=== PATIENT | female | born 1955 | race Caucasian/White ===

== ENCOUNTER 2018-06-20 12:07 | Emergency (ER) | payer BC, OTHER ==
[2018-06-20 12:20] VITALS: BP 154/87
[2018-06-20] MEDS ORDERED: Lidocaine 1%* 5 ML VIAL INJ ONE (12:41)
--- NOTE | 2018-06-20 12:44 | ED ---
Skin Complaint - HPI Summary HPI Summary: 62 year old female presents with left ring finger swelling for a week. She states she had a mohs surgery on her face a couple weeks ago. She states she developed some burning pain in the area prior to the lesion. Couple days later she developed a blister. She states the blister has been getting worse. States she has some redness presents around the area. He saw her primary and told her to start taking doxycycline if it got worse. Her primary cultured the area and did not anything back. Started doxycycline yesterday and has taken 2 doses. She states swelling has gotten worse. She denies any drainage from the area. - History of Current Complaint Chief Complaint: UCUpperExtremity Time Seen by Provider: 06/20/18 12:36 Stated Complaint: RED SWOLLEN FINGER Pain Intensity: 8 - Allergy/Home Medications Allergies/Adverse Reactions: Allergies Allergy/AdvReac Type Severity Reaction Status Date / Time No Known Allergies Allergy Verified 06/20/18 12:46 Home Medications: Home Medications DOXYcycline CAP(*) [DOXYcycline 100MG CAP(*)] 100 mg PO BID 06/20/18 [History Confirmed 06/20/18] diPHENhydraMINE PO* [Benadryl PO 25 MG TAB*] 25 mg PO Q6H PRN 06/20/18 [History Confirmed 06/20/18] PMH/Surg Hx/FS Hx/Imm Hx Endocrine/Hematology History: Denies: Hx Anticoagulant Therapy Respiratory History: Denies: Hx Asthma Infectious Disease History: No Infectious Disease History: Denies: Traveled Outside the [place] in Last 30 Days - Social History Alcohol Use: Occasionally Substance Use Type: Reports: None Smoking Status (MU): Never Smoked Tobacco Review of Systems Negative: Fever Negative: Chest Pain Negative: Shortness Of Breath Positive: Other - lesion left ring finger All Other Systems Reviewed And Are Negative: Yes Physical Exam Triage Information Reviewed: Yes Vital Signs On Initial Exam: Initial Vitals Temp Pulse Resp BP Pulse Ox 98.6 F 70 17 154/87 100 06/20/18 12:14 06/20/18 12:14 06/20/18 12:14 06/20/18 12:14 06/20/18 12:14 Vital Signs Reviewed: Yes Appearance: Positive: Well-Appearing Skin: Positive: Warm, Dry, Other - eythema around 3cm blister like swelling on left ring finger palmar aspect of distal phalanx, small blisters adjacent to the area Head/Face: Positive: Normal Head/Face Inspection Eyes: Positive: Normal, Conjunctiva Clear ENT: Positive: Pharynx normal Respiratory/Lung Sounds: Positive: Clear to Auscultation, Breath Sounds Present Cardiovascular: Positive: Normal, RRR Musculoskeletal: Positive: Strength/ROM Intact - left ring finger, Other - good pulses, capillary refill<2 secs Neurological: Positive: Normal Psychiatric: Positive: Normal Diagnostics - Vital Signs Vital Signs Temp Pulse Resp BP Pulse Ox 06/20/18 12:14 98.6 F 70 17 154/87 100 - Laboratory Lab Statement: Any lab studies that have been ordered have been reviewed, and results considered in the medical decision making process. Course/Dx - Course Course Of Treatment: 62 year old female presents with left ring finger swelling for a week. She states she had a mohs surgery on her face a couple weeks ago. She states she developed some burning pain in the area prior to the lesion. Couple days later she developed a blister. She states the blister has been getting worse. States she has some redness presents around the area. He saw her primary and told her to start taking doxycycline if it got worse. Her primary cultured the area and did not anything back. Started doxycycline yesterday and has taken 2 doses. She states swelling has gotten worse. She denies any drainage from the area. On exam has blisterlike lesion with surrounding erythema on left ring finger. Minimal erythema around the blister. Multiple blister type lesions adjacent to the larger area of swelling. Discussed with Dr. Newsome and will try I&D the area. Attempted I&D and only got clear liquid. Believe this is most consistent with a herpetic infection. Will have continued doxycycline for the surrounding cellulitis. Told to keep the area covered has not to spread the infection. Gave referral to ortho if not improving. Told to follow up primary. Patient understands agrees with plan. - Differential Diagnoses - Skin Complaint Differential Diagnoses: Other - paronchyia, felon, herpatic che - Diagnoses Provider Diagnoses: Herpetic felon Discharge - Sign-Out/Discharge Documenting (check all that apply): Patient Departure All imaging exams completed and their final reports reviewed: No Studies - Discharge Plan Condition: Good Disposition: HOME Patient Education Materials: Paronychia (ED) Referrals: Crepet,Judy, MD [Primary Care Provider] - Mel Bowman MD [Medical Doctor] - Additional Instructions: Do warms soaks of area at least twice a day keep area covered continue antibiotics Follow up with primary or ortho within 5 days Return to ED if develop any new or worsening symptoms - Billing Disposition and Condition Condition: GOOD Disposition: Home
--- NOTE | 2018-06-22 16:01 | UC ---
- Progress Note Progress Note: 06/22/2018 wound culture result: no growth. Pt was taking Doxycycline PO which has probably finished by now. Pt was Advised upon d/c to f/u w/ PCP of Orthopedics if lesion fo not improve. No change. Zonia Meade Course/Dx - Diagnoses Provider Diagnoses: Herpetic felon Discharge - Sign-Out/Discharge Documenting (check all that apply): Patient Departure - D/C home All imaging exams completed and their final reports reviewed: No Studies - Discharge Plan Condition: Good Disposition: HOME Patient Education Materials: Paronychia (ED) Referrals: Mel Bowman MD [Medical Doctor] - Judy Aldrich MD [Primary Care Provider] - Additional Instructions: Do warms soaks of area at least twice a day keep area covered continue antibiotics Follow up with primary or ortho within 5 days Return to ED if develop any new or worsening symptoms - Billing Disposition and Condition Condition: GOOD Disposition: Home
[2018-06-22 22:49] LABS: HSV 1 PCR Negative (Negative); Herpes Source FINGER
--- NOTE | 2018-06-23 09:16 | UC ---
- Progress Note Progress Note: Labs reviewed today: HSV-1 and 2 PCR negative Wound culture was negative as noted on previous note, treated with doxycycline. No change in plan, follow up with orthopedics as scheduled. Course/Dx - Diagnoses Provider Diagnoses: Herpetic felon Discharge - Sign-Out/Discharge Documenting (check all that apply): Post-Discharge Follow Up All imaging exams completed and their final reports reviewed: No Studies - Discharge Plan Condition: Good Disposition: HOME Patient Education Materials: Paronychia (ED) Referrals: Mel Bowman MD [Medical Doctor] - Judy Aldrich MD [Primary Care Provider] - Additional Instructions: Do warms soaks of area at least twice a day keep area covered continue antibiotics Follow up with primary or ortho within 5 days Return to ED if develop any new or worsening symptoms - Billing Disposition and Condition Condition: GOOD Disposition: Home
== END 2018-06-20 13:30 | disposition home or self-care (01) ==
LOC: UCEAST 12:07
DX: S60.425A Blister (nonthermal) of left ring finger, initial encounter (principal); B00.89 Other herpesviral infection; X58.XXXA Exposure to other specified factors, initial encounter; Y92.9 Unspecified place or not applicable
CPT/HCPCS: 10060; 10160; 87070; 87205; 87529; 99211; G0463